=== PATIENT | male | born 1985 | race Caucasian/White ===

== ENCOUNTER 2016-08-09 23:44 | Emergency (ER) | payer OTHER ==
[~2016-08-09] VITALS: Ht 177.8 cm; Wt 93.5 kg
[2016-08-09 23:58] LABS: MCH 32.4 PG (29.0-34.0); MCHC 34.9 G/DL (30.0-36.0); MEAN PLAT.VOLUME 9.1 uM^3 (9.0-12.4); PLATELET COUNT 279 K/uL (156-360); RBC DIS.WIDTH-CV 12.1 % (11.8-14.6); RBC DIS.WIDTH-SD 42.1 % (39-53); RED BLOOD COUNT 4.84 M/uL (4.00-5.50); WHITE BLOOD COUNT 10.6 K/uL (4.1-10.2)
[2016-08-10 00:11] LABS: CHLORIDE 101 mEq/L (99-109); POTASSIUM 3.5 mEq/L (3.7-5.4); SODIUM 141 mEq/L (136-147)
[2016-08-10 00:12] LABS: GLUCOSE 129 mg/dL (70-99)
[2016-08-10 00:14] LABS: ANION GAP 12 MEQ/L (2-14)
[2016-08-10 00:16] LABS: GFR ESTIMATE (CALCULATED) > 59 mL/min/
[2016-08-10 00:17] LABS: UREA NITROGEN (BUN) 11 mg/dL (9-23)
[2016-08-10 00:21] LABS: TROP-I INTERPRETATION NEGATIVE; TROPONIN-I < 0.01 ng/mL (0.0-0.30)
[2016-08-10 00:51] LABS: TOTAL BILIRUBIN 0.5 mg/dL (0.0-1.0)
[2016-08-10 00:52] LABS: ALKALINE PHOSPHATASE 50 IU/L (3-129)
[2016-08-10 00:54] LABS: DIRECT BILIRUBIN 0.2 mg/dL (0.0-0.3)
[2016-08-10 00:55] LABS: LIPASE 30 U/L (1.0-51.0)
[2016-08-10 02:40] LABS: TROP-I INTERPRETATION NEGATIVE; TROPONIN-I < 0.01 ng/mL (0.0-0.30)
[2016-08-10 03:21] VITALS: BP 115/76
== END 2016-08-10 03:27 | disposition home or self-care (01) ==
LOC: EME 23:44
PROVIDERS: Emergency Medicine
DX: R07.9 Chest pain, unspecified (principal); I10 Essential (primary) hypertension; E87.6 Hypokalemia
CPT/HCPCS: 71020; 80048; 80076; 83690; 84484; 85027; 93005; 99281; 99284